=== PATIENT | female | born 2000 | race Caucasian/White ===

== ENCOUNTER 2025-04-13 12:01 | Emergency (ER) | payer OTHER, SELFPAY ==
[2025-04-13 12:07] VITALS: BP 154/92
[2025-04-13 12:21] LABS: Hematocrit 45.6 % (37.0-47.0); Hemoglobin 14.5 g/dL (12.0-16.0); Mean Corp Hgb Conc. 31.8 g/dL (33.0-37.0); Mean Corpuscular Volume 85.4 fL (81.0-99.0); Nucleated Red Blood Cells % 0 %; Platelet Count 322 10^3/uL (130-400); Red Cell Dist. Width 12.7 % (11.5-14.5)
[2025-04-13 12:34] LABS: ALT (SGPT) 16 U/L (0-35); AST (SGOT) 22 U/L (14-36); Albumin 4.7 g/dl (3.5-5.0); Alkaline Phosphatase 66 U/L (38-126); Blood Urea Nitrogen 13 mg/dl (7-17); Calcium 9.5 mg/dl (8.4-10.2); Carbon Dioxide 23 mmol/L (22-30); Chloride 109 mmol/L (98-107); Glucose 93 mg/dl (70-99); Potassium 4.0 mmol/L (3.5-5.1); Sodium 140 mmol/L (135-145); Total Protein 7.8 g/dl (6.3-8.2); eGFR > 60.00
[2025-04-13 12:44] LABS: Troponin I < 0.012 ng/ml
[2025-04-13 13:45] VITALS: BP 131/79
[2025-04-13 14:00] VITALS: BP 131/86
[2025-04-13 14:47] VITALS: BMI 27.7
[2025-04-13 14:56] LABS: HCG, Serum Qualitative Screen Negative
[2025-04-13 15:00] LABS: Magnesium 1.9 mg/dl (1.6-2.3)
[2025-04-13 15:12] LABS: D-Dimer 0.34 ug/mlFEU (0.00-0.50)
[2025-04-13 15:17] LABS: Troponin I < 0.012 ng/ml
[2025-04-13 16:48] VITALS: BP 121/80
[2025-04-13 17:00] VITALS: BP 124/78
--- NOTE | 2025-04-13 20:52 | ED.GENMED ---
History of Present Illness
General
Chief Complaint: Chest Problem
Source: patient and family (Mother and father at bedside)
Exam Limitations: none
Time Seen by Provider: 04/13/25 14:08
Nursing documentation reviewed up to this point in time: agreed with
History of Present Illness
History of Present Illness:
Patient is a 24 year old female who presents to the emergency department with dad for evaluation of palpitation x 1 week. Patient states symptoms initially began after she returned home from a music festival in [place], [place] last week. She describes
intermittent palpitations throughout the week without any exertional component. She also has had intermittent discomfort in her central chest, which also has not been exertional or pleuritic in nature. She denies any shortness of breath. No fever or
cough. No pain or swelling in lower extremities.
She apparently has a history of similar palpitations and has been seen by her head cashier. She was referred to have a Holter monitor performed, which she has yet to complete. Symptoms never persisted for quite this long, which is why she decided to
come to the emergency department for evaluation today.
Patient does take an OCP. No history of blood clots.
Review of Systems
Review of Systems
Allergies reviewed?: Yes
All Other Systems: ROS reviewed and negative except as documented in HPI and ROS
Phy Exam
Physical Exam
Physical Exam:
Vitals: Hypertensive and mildly tachycardic on initial evaluation, improved during stay. Afebrile
General: Patient is well appearing, no acute distress
Skin: Warm and dry, no rashes or lesions
Head: Normocephalic, atraumatic
Eyes: Sclera nonicteric. EOMs intact. No nystagmus.
Throat: Protecting airway
Neck: Normal ROM, no cervical spine tenderness, no meningismus
Cardiac: Regular rate and rhythm, no murmurs. 2+ palpable DP pulses bilaterally.
Pulm: Normal respiratory effort, no wheezes, rales, rhonchi heard on exam
.
Abdomen: No abdominal tenderness.
Extremities: No evidence of cyanosis or edema
Neuro: AAOx3. Grossly intact
Psychiatric: Normal affect.
Course
Orders/Labs/Results
Orders:
Orders
04/13/25 12:03
ECG [Electrocardiogram (*1)] Urgent
Reason for Study: Chest Pain
EKG- Treatment ONCE
04/13/25 12:11
Complete Blood Count/With Diff Urgent
Comprehensive Metabolic Panel Urgent
HCG, Serum Qualitative Screen Urgent
Magnesium Urgent
Comment: SERUM HCG QUALITATIVE & MAG ADDED ON BY FLOOR 2:30PM 04-13-25
TSH Reflex To Free T4 Urgent
Troponin I Urgent
04/13/25 14:29
EKG- Treatment ONCE
04/13/25 14:30
Add On- LAB Urgent
Tests Added?: serum hcg qual, magnesium
04/13/25 14:41
D-Dimer Urgent
Troponin I Urgent
04/13/25 15:15
Electrocardiogram (*1) Urgent
Reason for Study: Chest Pain
04/13/25 15:31
CR Chest - 2 Views Urgent
Comment:
Reason For Exam: chest pain
Abnormal Lab Results
04/13/25
12:11
MCHC 31.8 L g/dL
(33.0-37.0)
Chloride 109 H mmol/L
(98-107)
04/13/25 12:11
04/13/25 12:11
Vital Signs
Initial and Last Documented VS:
Initial Vital Signs
Temp Pulse Resp BP Pulse Ox
98.5 F 86 18 154/92 98
04/13/25 12:07 04/13/25 12:07 04/13/25 12:07 04/13/25 12:07 04/13/25 12:07
Last Documented Vital Signs
Temp Pulse Resp BP Pulse Ox
98.5 F 92 14 124/78 98
04/13/25 12:07 04/13/25 17:00 04/13/25 17:00 04/13/25 17:00 04/13/25 20:53
MDM/Problems Addressed
Differential Diagnosis Includes:
Not limited to: acute dehydration, viral illness, cardiac arrhythmia, hyperthyroid, etc
MDM/Problems Addressed:
24-year-old female presents with one week of palpitations and intermittent chest discomfort. Symptoms are not exertional, pleuritic, or associated with infectious symptoms. No significant past medical history noted aside from being on an oral
contraceptive pill. She recently traveled. During evaluation, she was mildly tachycardic, though otherwise well-appearing. Physical exam unremarkable.
Initial ED workup included basic labs, TSH, and troponin � all within normal limits, including undetectable initial troponin. Due to OCP use, recent travel, and mild tachycardia, additional workup was pursued.
D-dimer was negative. Repeat troponin remained undetectable. EKG was non-ischemic. Chest X-ray normal. Patient was placed on continuous cardiac monitoring during ED stay and remained asymptomatic with no evidence of arrhythmia.
Given reassuring evaluation and absence of red flags, serious cardiac or pulmonary etiology is not suspected at this time. Symptoms may be related to benign causes such as anxiety, hormonal changes, or transient arrhythmia.
Patient is stable for discharge. Advised to follow up with primary care and cardiology as needed. Encouraged to proceed with Holter monitor as planned. Strict return precautions discussed, including return for worsening symptoms, persistent
tachycardia, or new chest pain/dyspnea.
Chronic conditions affecting care:
N/A
Acute Exacerbation and/or Progression of Chronic Illness:
N/A
*Radiology
Radiology exam reviewed: preliminary read by ED provider (Chest xray reviewed by me - no acute findings)
*Pulse Oximetry
SaO2: 98
Oxygen Mode of Delivery: Room air
Patient hypoxic: no
*EKG
Interpreted by ED Provider?: Yes
EKG Intrepretation Date: 04/13/25
Interpretation: normal
Comparison EKG: no comparison EKG present
Heart Rate: 78
Rate: normal
Rhythm: sinus and sinus arrhythmia
[place]: normal axis
Interval: normal QT interval
QRS Pattern: normal QRS
Ischemia: no ischemia
*Operations Professional Interpretation
Rate: tachycardiac
Interpretation: normal
Heart Rate: 106
Rhythm: sinus
*Critical Care Note
Total Time (30-74mins, 75-104mins- exclusive of procedures): Not Applicable
ED Attending Note
-
Portions of this chart may have been created with voice recognition software.� Occasional wrong word or��sound alike� substitutions may have occurred due to the inherent limitations of voice recognition software.
Discharge Plan
Departure
Patient Disposition: Home (Routine Discharge)
Date of Disposition: 04/13/25
Time of Disposition: 16:58
Patient with high blood pressure during this ER visit?: Yes
Condition: Good
Discharge Problem:
Palpitations
Instructions: Palpitations - ED (DC), BLOOD PRESSURE
Prescriptions:
No Action
No Current Medications
Referrals:
Contreras Kolb MD [Family Provider, Family Practice]
Elyssa Storey MD [Non-Admitting Privileges] - As needed
Activity Restrictions/Additional Instructions:
RETURN TO THE EMERGENCY DEPARTMENT WITH ANY FEVER, CHEST PAIN, SHORTNESS OF BREATH/DIFFICULTY BREATHING, PERSISTENT PALPITATIONS, DIZZINESS/LIGHTHEADEDNESS OR EPISODES OF SYNCOPE, WORSENING IN CURRENT SYMPTOMS, OR ANY OTHER CONCERNS
�As discussed your lab work including blood counts, chemistry panel, thyroid test, cardiac enzymes, and D-dimer were negative. There is no witnessed arrhythmia while you are in the emergency department.
- Please stay well-hydrated. Take medications as prescribed.
- It is importantly follow-up with your primary care/cardiology to arrange for Holter monitor outpatient.
Monitor your symptoms closely and return to the emergency department with any acute worsening/new symptoms or any other concerns
Interventions
Interventions:
*Risk Screen - Suicide Last Done: 04/13/25 12:07
*General Assessment Last Done: 04/13/25 12:07
*Neglect/Abuse Screening Last Done: 04/13/25 12:07
*ED- Fall Risk Assessment Last Done: 04/13/25 12:07
*ED COVID-19 Vaccine History Last Done: 04/13/25 12:07
*ED Influenza Vaccine History Last Done: 04/13/25 12:07
*Nursing Disposition Last Done: 04/13/25 17:23
ED- Cardiac Assessment Last Done: 04/13/25 17:22
ED- Pulmonary Assessment Last Done: 04/13/25 14:00
Discharge Date and Time
Discharge Date/Time: 04/13/25 17:25
Print Language: GHANAIAN
== END 2025-04-13 17:25 | disposition home or self-care (01) ==
LOC: EMR 12:01
PROVIDERS: Physician Assistant; Student in an Organized Health Care Education/Training Program; EMERGENCY PHYSICIAN Emergency Medicine; FAMILY PHYSICIAN Student in an Organized Health Care Education/Training Program
DX: R00.2 Palpitations (principal); Z79.3 Long term (current) use of hormonal contraceptives
CPT/HCPCS: 99283; 71046; 80053; 83735; 84443; 84484; 84703; 85025; 85379; 93005

== ENCOUNTER → 2025-04-16 13:51 | Outpatient (REF) | payer OTHER, SELFPAY | LOC: RCS 13:51 | PROVIDERS: ATTENDING PHYSICIAN Student in an Organized Health Care Education/Training Program | DX: R00.2 Palpitations (principal) | CPT/HCPCS: 93225; 93226 ==